=== PATIENT | female | born 1955 | race Caucasian/White ===

== ENCOUNTER → 2017-06-04 | Outpatient (CLI) | payer BC ==
[~2017-06-04] MED LIST: ACIPHEX20 MG PO; ATOXIMETIN-B1 CAP PO; LIBRAX 5 MG-2.51 CA1 PO
== END ==
LOC: MC.RAD 16:28
DX: Z12.31 Encounter for screening mammogram for malignant neoplasm of breast (principal)

== ENCOUNTER → 2017-08-05 | Outpatient (REF) | LOC: WSOH 17:15 | DX: Z02.89 Encounter for other administrative examinations (principal) ==

== ENCOUNTER → 2018-03-20 | Outpatient (CLI) | payer BC | LOC: COL.RAD 07:31 | DX: K21.9 Gastro-esophageal reflux disease without esophagitis (principal); K63.89 Other specified diseases of intestine; R05 Cough | CPT/HCPCS: A9541 ==

== ENCOUNTER → 2018-03-24 | Outpatient (CLI) | payer BC | LOC: MC.RAD 07:28 | DX: N63.21 Unspecified lump in the left breast, upper outer quadrant (principal) ==

== ENCOUNTER → 2018-08-14 | Outpatient (CLI) | payer BC | LOC: COL.RAD 12:32 | DX: B19.20 Unspecified viral hepatitis C without hepatic coma (principal); G45.9 Transient cerebral ischemic attack, unspecified ==

== ENCOUNTER 2018-09-09 17:12 | Emergency (ER) | payer BC ==
[~2018-09-09] VITALS: Ht 157.5 cm; Wt 84.1 kg
[2018-09-09 17:17] VITALS: BP 152/104; TEMP 98.3
[2018-09-09] MEDS ORDERED: FLEXERIL5 MG PO (18:57)
[2018-09-09] MEDS ORDERED: PERCOCET 325 MG1 TA2 PO (18:57)
[2018-09-09 19:14] VITALS: PULSE 73
== END 2018-09-09 19:16 | disposition home or self-care (01) ==
LOC: COL.ER 17:12
DX: M54.5 Low back pain (principal); K21.9 Gastro-esophageal reflux disease without esophagitis

== ENCOUNTER → 2018-12-23 | Outpatient (CLI) | payer BC ==
[~2018-12-23] MED LIST changes: +FLEXERIL5 MG PO; +PERCOCET 325 MG1 TA2 PO
== END ==
LOC: MC.RAD 14:36
DX: Z12.31 Encounter for screening mammogram for malignant neoplasm of breast (principal); N63.20 Unspecified lump in the left breast, unspecified quadrant

== ENCOUNTER 2019-12-03 12:15 | Outpatient (RCR) | payer BC | END 2020-01-28 15:04 | disposition home or self-care (01) | LOC: WSPT 12:15 | DX: M54.2 Cervicalgia (principal) | CPT/HCPCS: G0283-GP ==

== ENCOUNTER → 2020-09-29 | Outpatient (CLI) | payer BC | LOC: MC.RAD 14:38 | DX: Z12.31 Encounter for screening mammogram for malignant neoplasm of breast (principal) ==

== ENCOUNTER → 2021-09-28 | Outpatient (CLI) | payer MEDICARE, BC | LOC: COL.RAD 09:34 | DX: H93.A9 Pulsatile tinnitus, unspecified ear (principal) | CPT/HCPCS: A9585 ==

== ENCOUNTER 2024-04-15 10:05 | Observation (INO) | payer MEDICARE, BC | END 2024-04-16 15:00 | disposition home or self-care (01) | LOC: COL.ER 10:05 → MEDICAL 15:15 | PROVIDERS: ADMIT Internal Medicine | DX: R07.89 Other chest pain (principal); R06.02 Shortness of breath; H81.09 Meniere's disease, unspecified ear; Z79.52 Long term (current) use of systemic steroids ==

== ENCOUNTER → 2024-05-05 | Outpatient (CLI) | payer MEDICARE, BC | LOC: MC.RAD 11:41 | DX: Z12.31 Encounter for screening mammogram for malignant neoplasm of breast (principal) ==